=== PATIENT | male | born 1990 | race Caucasian/White ===

== ENCOUNTER 2021-08-20 06:51 | Emergency (ER) | payer MEDICAID, OTHER ==
[~2021-08-20] VITALS: Ht 180.3 cm; Wt 79.4 kg
[2021-08-20] MEDS ORDERED: TETRACAINE HCL 0.5% OPTH(EYE) SOLN 4ML EACHEYE ONE (07:15)
[2021-08-20] MEDS ORDERED: FLUORESCEIN SOD OPTH TEST STRIP OP ONE (07:15)
[2021-08-20 07:32] VITALS: BP 116/83
[2021-08-20] MEDS ORDERED: IBUPROFEN 800 MG TAB PO ONE (07:45)
== END 2021-08-20 07:41 | disposition home or self-care (01) ==
LOC: ER 06:51
DX: T15.01XA Foreign body in cornea, right eye, initial encounter (principal); W26.8XXA Contact with other sharp object(s), not elsewhere classified, initial encounter; Y93.89 Activity, other specified; Y92.89 Other specified places as the place of occurrence of the external cause; Y99.8 Other external cause status
CPT/HCPCS: 65222